=== PATIENT | female | born 1940 | race Hispanic/Latino ===

== ENCOUNTER 2017-08-09 12:38 | Outpatient (CLI) | payer MEDICARE ==
--- NOTE | 2017-08-09 16:33 | XRay Report ---
FINAL REPORT EXAM: XR KNEE 4+V LT HISTORY: LEFT KNEE PAIN TECHNIQUE: Four views left knee. PRIORS: None currently available. FINDINGS: Fegd-op-bayv articulation at the lateral patellofemoral compartment. Otherwise, asymmetrical tricompartment space narrowing. Chondrocalcinosis. Subchondral sclerosis. Marginal osteophytes. Soft tissue dystrophic calcifications or loose bodies. Vascular calcifications. No significant joint effusion. There is no acute fracture. There is no evidence for healing fracture. There is no acute dislocation. There is no cortical destruction to suggest osteomyelitis. There are no suspicious osseous lesions. There are no radiopaque foreign objects. IMPRESSION: Chondrocalcinosis. Moderate to severe arthrosis. 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
== END 2017-08-09 12:39 | disposition home or self-care (01) ==
LOC: SPVIMAG 12:38
PROVIDERS: ATTEND Orthopaedic Surgery Sports Medicine
DX: M17.12 Unilateral primary osteoarthritis, left knee (principal); M11.262 Other chondrocalcinosis, left knee; I10 Essential (primary) hypertension

== ENCOUNTER 2017-11-25 15:42 | Emergency (ER) | payer MEDICARE ==
--- NOTE | 2017-11-25 17:57 | Emergency Department Report ---
HPI - General Chief Complaint: Hypoglycemia Time Seen by Provider: 11/25/17 17:25 - HPI HPI: Room 23 The patient is a 77-year-old female presenting with a chief complaint of altered mental status. The patient's son states for the past 3 days the patient has been altered. The son states the patient has fallen once each day for the past 3 days one time striking her head but never losing consciousness. He states the patient sometimes appears confused and will not follow directions. The patient has also been spilling food/drinks. The patient denies pain but seems to lose her focus easily. When EMS was called patient's blood pressure was found to be 92 (despite being reported as 44 earlier by the patient's son). Patient's glucose was 171 upon arrival to the ED Location: Mental state Duration: [See above] Quality: Altered Severity: Moderate Modifying factors: [see above] Context: [see above] Mode of transportation: [not driving] ED Past Medical Hx - Past Medical History Previous Medical History?: Yes Hx Hypertension: Yes Hx Diabetes: Yes Additional medical history: hyperlipedemia - Surgical History Past Surgical History?: Yes Additional Surgical History: Right hip replacement. back and neck surgery - Family History Family history: no significant - Social History Smoking Status: Never Smoker Substance Use Type: None - Medications Home Medications: Home Medications Medication Instructions Recorded Confirmed Last Taken Type Atenolol [Tenormin] 50 mg PO DAILY 05/21/14 11/25/17 11/25/17 History LORazepam 1 mg PO DAILY PRN 05/21/14 11/25/17 11/25/17 History Omeprazole [PriLOSEC] 20 mg PO DAILY 05/21/14 11/25/17 11/25/17 History Pen Needle, Diabetic [Novofine 1 each SQ DAILY 05/21/14 11/25/17 11/25/17 History Plus] Sertraline [Zoloft] 50 mg PO DAILY 05/21/14 11/25/17 11/25/17 History Simvastatin [Zocor] 20 mg PO QHS 05/21/14 11/25/17 11/25/17 History Insulin Lispro Prot/Lispro 66 units SUB-Q DAILY 11/25/17 11/25/17 11/25/17 History [HumaLOG Mix 75/25 Vial] Levothyroxine [Synthroid] 50 mcg PO QAM 11/25/17 11/25/17 11/25/17 History Lisinopril 20 mg PO BID 11/25/17 11/25/17 11/25/17 History Meclizine [Antivert] 25 mg PO BID PRN 11/25/17 11/25/17 Unknown History NIFEdipine [] 90 mg PO DAILY 11/25/17 11/25/17 11/25/17 History ED Review of Systems ROS: Stated complaint: LOW BLOOD SUGAR Other details as noted in HPI Constitutional: no symptoms reported Eyes: denies: eye pain ENT: denies: ear pain Respiratory: no symptoms reported Cardiovascular: denies: chest pain Endocrine: no symptoms reported Gastrointestinal: abdominal pain Genitourinary: denies: dysuria Musculoskeletal: denies: back pain Neurological: denies: headache Physical Exam - Physical Exam Vital Signs: Vital Signs 11/25/17 17:02 Temperature 98 F Pulse Rate 109 H Respiratory 12 Rate Blood Pressure 184/101 O2 Sat by Pulse 99 Oximetry Physical Exam: GENERAL: The patient is well-developed well-nourished female lying on stretcher not appearing to be in acute distress. [] HEENT: Normocephalic. Atraumatic. Extraocular motions are intact. Patient has moist mucous membranes. NECK: Supple. Trachea midline CHEST/LUNGS: Clear to auscultation. There is no respiratory distress noted. HEART/CARDIOVASCULAR: Regular. There is no tachycardia. There is no gallop rub or murmur. ABDOMEN: Abdomen is soft, with diffuse tenderness to palpation. There is no rebound or guarding. Patient has normal bowel sounds. SKIN: There is no rash. There is no edema. There is no diaphoresis. NEURO: The patient is awake, and answers some questions appropriately. Patient loses her train of thought easily. The patient is cooperative. The patient has no focal neurologic deficits. The patient has normal speech. Cranial nerves II through XII grossly intact, no drift MUSCULOSKELETAL: There is no evidence of acute injury. NIHSS= 0 LOC a. Alert= 0 Not alert but arousable to minor stimuli=1 Not alert requires repeated or strong stimuli to move= 2 Responds only reflex motor or unresponsive=3 b. asks month and age answers both correctly= 0 answers one correctly= 1 answers neither correctly= 2 Best Gaze normal= 0 abnormal in one or both but forced deviation or total paresis absent= 1 forced deviation or total gaze paresis= 2 Visual no visual loss= 0 partial hemianopia= 1 complete hemianopia= 2 bilateral hemianopia= 3 Facial Palsy normal= 0 minor paralysis= 1 partial paralysis= 2 complete paralysis= 3 Motor Arm no drift= 0 drift before 10 secs but doesnt hit bed= 1 some effort against gravity= 2 no effort against gravity= 3 no movement= 4 Motor leg no drift= 0 drift before 5 secs but doesnt hit bed= 1 drifts to bed before 5 secs= 2 no effort against gravity= 3 no movement= 4 Limb ataxia absent=0 present in one limb= 1 present in two limbs= 2 Sensory normal= 0 mild sensory loss= 1 severe (unaware of being touched)= 2 Best language mild/some loss of fluency= 1 severe= 2 mute= 3 Dysarthria normal= 0 slurs some words= 1 severe/unintelligible= 2 Extinction and Inattention no abnormality= 0 visual, tactile, auditory or personal inattention= 1 profound (doesnt recognize own hand or orients to only one side= 2 ED Course Vital Signs 11/25/17 17:02 Temperature 98 F Pulse Rate 109 H Respiratory 12 Rate Blood Pressure 184/101 O2 Sat by Pulse 99 Oximetry ED Medical Decision Making - Lab Data Result diagrams: 11/25/17 17:47 11/25/17 17:47 - Radiology Data Radiology results: report reviewed (CT head, CT cervical spine, CT abdomen and pelvis), image reviewed (CT head, CT cervical spine, CT abdomen and pelvis) [facility] [address] [place] [address] Cat Scan Report Signed Patient: ABRAHAN BARLOW MR#: [id number] : 1940 Acct:[id number] Age/Sex: 77 / F ADM Date: 11/25/17 Loc: ED Attending Dr: Ordering Physician: ANGELA LAMA MD Date of Service: 11/25/17 Procedure(s): CT head/brain wo con Accession Number(s): [id number] cc: ANGELA LAMA MD FINAL REPORT PROCEDURE: CT HEAD/BRAIN WO CON TECHNIQUE: Computerized tomography of the head was performed without contrast material. HISTORY: altered mental status COMPARISON: No prior studies are available for comparison. FINDINGS: Skull and scalp: Normal. Paranasal sinuses: Normal. Ventricles and subarachnoid spaces: Are prominent consistent with cerebral atrophy.. Cerebrum: There is mild degree bilateral periventricular nonspecific white matter hypodensity most likely representing chronic microangiopathy.. Cerebellum and brainstem: No evidence of hemorrhage, acute infarction or mass. Vasculature: Atherosclerotic calcification is noted involving bilateral internal carotid and vertebral arteries.. Comments: None. IMPRESSION: No acute intracranial process. Transcribed By: UBC Dictated By: FANNY HARDIN Electronically Authenticated By: FANNY HARDIN Signed Date/Time: 11/25/172125 DD/ 25 TD/TT: 11/25/172125 [facility] [address] [place] [address] Cat Scan Report Signed Patient: ABRAHAN BARLOW MR#: [id number] : 1940 Acct:[id number] Age/Sex: 77 / F ADM Date: 11/25/17 Loc: ED Attending Dr: Ordering Physician: ANGELA LAMA MD Date of Service: 11/25/17 Procedure(s): CT cervical spine wo con Accession Number(s): [id number] cc: ANGELA LAMA MD FINAL REPORT PROCEDURE: CT CERVICAL SPINE WO CON TECHNIQUE: Computerized tomography of the cervical spine was performed from the skull base to T1 without contrast material. HISTORY: fall, head injury, altered mental status COMPARISON: No prior studies are available for comparison. FINDINGS: Vertebral height is within normal limits. Carotid calcifications are noted bilaterally. Visualized lung apices are clear. Thyroid is unremarkable. An acute fracture is not identified. C1-2: There is narrowing of the atlantoaxial joint space with osteophyte formation. C2-3: Minimal degree right neural foraminal stenosis is noted secondary to minimal degree anterolisthesis and facet arthropathy.. C3-4: Mild degree left neural foraminal stenosis is noted secondary to facet arthropathy.. C4-5: Mild degree broad-based disc osteophyte complex is noted resulting in bilateral lateral recess stenosis right more than left. There is also moderate degree bilateral neural foraminal stenosis secondary to uncovertebral degenerative changes.. C5-6: There is evidence of intraspinal nodular calcification posteriorly to the right measuring about 5 millimeters which in combination with mild degree broad-based disc osteophyte complex is producing mild degree spinal canal stenosis. Moderate degree bilateral neural foraminal stenosis is noted at this level secondary to uncovertebral and facet degenerative changes.. C6-7: No significant abnormality. C7-T1: No significant abnormality. Other: No additional findings. IMPRESSION: No acute fracture Multilevel cervical spondylosis as described above. Postoperative changes are noted in posteriorly at the level of C5. Carotid calcification is noted. Doppler evaluation is recommended.. Transcribed By: [facility] Dictated By: FANNY HARDIN Electronically Authenticated By: FANNY HARDIN Signed Date/Time: 11/25/172147 DD/ 47 TD/TT: 11/25/172147 [facility] [address] [place] [id number] Cat Scan Report Signed Patient: ABRAHAN BARLOW MR#: [id number] : 1940 Acct:[id number] Age/Sex: 77 / F ADM Date: 11/25/17 Loc: ED Attending Dr: Ordering Physician: ANGELA LAMA MD Date of Service: 11/25/17 Procedure(s): CT abdomen pelvis w con Accession Number(s): [id number] cc: ANGELA LAMA MD FINAL REPORT PROCEDURE: CT ABDOMEN PELVIS W CON TECHNIQUE: Computerized axial tomography of the abdomen and pelvis was performed after the IV injection of iodinated nonionic contrast. HISTORY: diffuse abdominal pain COMPARISON: No prior studies are available for comparison. FINDINGS: Ascending aorta measures 4.7 centimeters in diameter. There is mild cardiomegaly. Coronary arterial calcification is identified. A small fat containing uncomplicated umbilical hernia is noted. Small hiatal hernia is noted. A 4 millimeters subpleural nodule is noted in the right lower lobe as seen image 22 of series 2. Evaluation of the abdomen is limited due to streak artifacts from the arms. Evaluation of the pelvis is limited due to streak artifacts from right hip prosthesis. Liver, spleen, pancreas and bilateral adrenal glands are within normal limits. Multiple simple cysts are noted in bilateral kidneys largest measuring 2.6 centimeters located in the upper pole left kidney. There is no obstructive uropathy. Urinary bladder is minimally filled with normal outlines. Abdominal aorta is of normal caliber. There is no free fluid or free air. Gallbladder is unremarkable. Small bowel loops are within normal limits. Multiple colonic diverticular noted without evidence of diverticulitis. Appendix is normal. Multiple wedge compression deformities are noted involving lower thoracic and lumbar vertebrae. Prior vertebral augmentation is noted involving T11 and T12 vertebrae. L2 and L3 vertebrae demonstrate mild degree wedge compression deformities. An irregular sclerotic density measuring about 10 millimeters is noted in the left iliac bone. IMPRESSION: Ascending aortic aneurysm Coronary arterial calcification Mild cardiomegaly Small hiatal hernia No acute intra-abdominal or pelvic pathology Wedge compression deformities of L2 and L3. The age of these fractures is not known. Transcribed By: [place]EE Dictated By: FANNY HARDIN Electronically Authenticated By: FANNY HARDIN Signed Date/Time: 11/25/172135 DD/ 35 TD/TT: 11/25/172135 - Differential Diagnosis subdural hematoma, ICH, hypoglycemia, electrolyte abnormality, ACS Critical care attestation.: If time is entered above; I have spent that time in minutes in the direct care of this critically ill patient, excluding procedure time. ED Disposition Clinical Impression: Altered mental status Disposition: [id number] OP ADMIT IP TO THIS HOSP Is pt being admited?: Yes Does the pt Need Aspirin: Yes Condition: Stable Referrals: PRIMARY CARE,MD [Primary Care Provider] - 3-5 Days Time of Disposition: 22:32 (hospitalist paged (Dr King))
[2017-11-25 18:11] LABS: Basophils % (Auto) 0.3 % (0.0-1.8); Eosinophils # (Auto) 0.1 K/mm3 (0.0-0.4); Eosinophils % (Auto) 0.8 % (0.0-4.3); Hematocrit 37.8 % (30.3-42.9); Hemoglobin 12.9 gm/dl (10.1-14.3); Lymphocytes # (Auto) 1.4 K/mm3 (1.2-5.4); Lymphocytes % (Auto) 18.4 % (13.4-35.0); Mean Corpuscular HGB Conc 34 % (30-34); Mean Corpuscular Hemoglobin 32 pg (28-32); Mean Corpuscular Volume 93 fl (79-97); Monocytes # (Auto) 0.5 K/mm3 (0.0-0.8); Monocytes % (Auto) 6.5 % (0.0-7.3); Platelet Count 240 K/mm3 (140-440); Red Blood Count 4.06 M/mm3 (3.65-5.03); Red Cell Distribution Width 13.4 % (13.2-15.2)
[2017-11-25 18:28] LABS: INR 0.94 (0.87-1.13)
[2017-11-25 18:29] LABS: Partial Thromboplastin Time 28.2 Sec. (24.2-36.6)
[2017-11-25 18:31] LABS: Alanine Aminotransferase 12 units/L (7-56); BUN/Creatinine Ratio 20; Blood Urea Nitrogen 12 mg/dL (7-17); Calcium 9.3 mg/dL (8.4-10.2); Hemolysis Index 8; Lipase 27 units/L (13-60)
[2017-11-25 18:31] LABS: Bilirubin,Urine NEG (Negative); Blood,Urine NEG (Negative); Color,Urine Yellow (Yellow); Mucus,Urine FEW /HPF; Protein,Urine <15 mg/dL mg/dL (Negative); Urobilinogen,Urine < 2.0 mg/dL (<2.0)
[2017-11-25 18:32] LABS: Creatine Kinase MB 2.3 ng/mL (0.0-4.0)
[2017-11-25 18:43] LABS: Free T4 (Free Thyroxine) 1.41 ng/dL (0.76-1.46)
--- NOTE | 2017-11-25 21:31 | Cat Scan Report ---
FINAL REPORT PROCEDURE: CT HEAD/BRAIN WO CON TECHNIQUE: Computerized tomography of the head was performed without contrast material. HISTORY: altered mental status COMPARISON: No prior studies are available for comparison. FINDINGS: Skull and scalp: Normal. Paranasal sinuses: Normal. Ventricles and subarachnoid spaces: Are prominent consistent with cerebral atrophy.. Cerebrum: There is mild degree bilateral periventricular nonspecific white matter hypodensity most likely representing chronic microangiopathy.. Cerebellum and brainstem: No evidence of hemorrhage, acute infarction or mass. Vasculature: Atherosclerotic calcification is noted involving bilateral internal carotid and vertebral arteries.. Comments: None. IMPRESSION: No acute intracranial process.
--- NOTE | 2017-11-25 21:41 | Cat Scan Report ---
FINAL REPORT PROCEDURE: CT ABDOMEN PELVIS W CON TECHNIQUE: Computerized axial tomography of the abdomen and pelvis was performed after the IV injection of iodinated nonionic contrast. HISTORY: diffuse abdominal pain COMPARISON: No prior studies are available for comparison. FINDINGS: Ascending aorta measures 4.7 centimeters in diameter. There is mild cardiomegaly. Coronary arterial calcification is identified. A small fat containing uncomplicated umbilical hernia is noted. Small hiatal hernia is noted. A 4 millimeters subpleural nodule is noted in the right lower lobe as seen image 22 of series 2. Evaluation of the abdomen is limited due to streak artifacts from the arms. Evaluation of the pelvis is limited due to streak artifacts from right hip prosthesis. Liver, spleen, pancreas and bilateral adrenal glands are within normal limits. Multiple simple cysts are noted in bilateral kidneys largest measuring 2.6 centimeters located in the upper pole left kidney. There is no obstructive uropathy. Urinary bladder is minimally filled with normal outlines. Abdominal aorta is of normal caliber. There is no free fluid or free air. Gallbladder is unremarkable. Small bowel loops are within normal limits. Multiple colonic diverticular noted without evidence of diverticulitis. Appendix is normal. Multiple wedge compression deformities are noted involving lower thoracic and lumbar vertebrae. Prior vertebral augmentation is noted involving T11 and T12 vertebrae. L2 and L3 vertebrae demonstrate mild degree wedge compression deformities. An irregular sclerotic density measuring about 10 millimeters is noted in the left iliac bone. IMPRESSION: Ascending aortic aneurysm Coronary arterial calcification Mild cardiomegaly Small hiatal hernia No acute intra-abdominal or pelvic pathology Wedge compression deformities of L2 and L3. The age of these fractures is not known.
--- NOTE | 2017-11-25 21:53 | Cat Scan Report ---
FINAL REPORT PROCEDURE: CT CERVICAL SPINE WO CON TECHNIQUE: Computerized tomography of the cervical spine was performed from the skull base to T1 without contrast material. HISTORY: fall, head injury, altered mental status COMPARISON: No prior studies are available for comparison. FINDINGS: Vertebral height is within normal limits. Carotid calcifications are noted bilaterally. Visualized lung apices are clear. Thyroid is unremarkable. An acute fracture is not identified. C1-2: There is narrowing of the atlantoaxial joint space with osteophyte formation. C2-3: Minimal degree right neural foraminal stenosis is noted secondary to minimal degree anterolisthesis and facet arthropathy.. C3-4: Mild degree left neural foraminal stenosis is noted secondary to facet arthropathy.. C4-5: Mild degree broad-based disc osteophyte complex is noted resulting in bilateral lateral recess stenosis right more than left. There is also moderate degree bilateral neural foraminal stenosis secondary to uncovertebral degenerative changes.. C5-6: There is evidence of intraspinal nodular calcification posteriorly to the right measuring about 5 millimeters which in combination with mild degree broad-based disc osteophyte complex is producing mild degree spinal canal stenosis. Moderate degree bilateral neural foraminal stenosis is noted at this level secondary to uncovertebral and facet degenerative changes.. C6-7: No significant abnormality. C7-T1: No significant abnormality. Other: No additional findings. IMPRESSION: No acute fracture Multilevel cervical spondylosis as described above. Postoperative changes are noted in posteriorly at the level of C5. Carotid calcification is noted. Doppler evaluation is recommended..
[2017-11-25] MEDS ORDERED: ASPIRIN PO ONE (22:33)
[2017-11-26 00:42] VITALS: BP 193/96
== END 2017-11-26 00:42 | disposition left against medical advice (07) ==
LOC: ED 15:42
DX: R41.82 Altered mental status, unspecified (principal); E11.65 Type 2 diabetes mellitus with hyperglycemia; R10.84 Generalized abdominal pain; I10 Essential (primary) hypertension; E78.5 Hyperlipidemia, unspecified
CPT/HCPCS: 36415; 70450; 72125; 74177; 80053; 81001; 82550; 82553; 82962; 83690; 84439; 84443; 84484; 85025; 85610; 85730; 99285; Q9967

== ENCOUNTER 2018-01-26 13:33 | Emergency (ER) | payer MEDICARE ==
--- NOTE | 2018-01-26 14:11 | Emergency Department Report ---
<JUNI MARKS III - Last Filed: 01/26/18 17:22> ED Fall HPI - General Chief Complaint: Chest Pain Stated Complaint: CHEST PAIN Time Seen by Provider: 01/26/18 14:10 - Related Data Home Medications Medication Instructions Recorded Confirmed Last Taken Atenolol [Tenormin] 50 mg PO DAILY 05/21/14 11/25/17 11/25/17 LORazepam 1 mg PO DAILY PRN 05/21/14 11/25/17 11/25/17 Omeprazole [PriLOSEC] 20 mg PO DAILY 05/21/14 11/25/17 11/25/17 Pen Needle, Diabetic [Novofine 1 each SQ DAILY 05/21/14 11/25/17 11/25/17 Plus] Sertraline [Zoloft] 50 mg PO DAILY 05/21/14 11/25/17 11/25/17 Simvastatin [Zocor] 20 mg PO QHS 05/21/14 11/25/17 11/25/17 Insulin Lispro Prot/Lispro 66 units SUB-Q DAILY 11/25/17 11/25/17 11/25/17 [HumaLOG Mix 75/25 Vial] Levothyroxine [Synthroid] 50 mcg PO QAM 11/25/17 11/25/17 11/25/17 Lisinopril 20 mg PO BID 11/25/17 11/25/17 11/25/17 Meclizine [Antivert] 25 mg PO BID PRN 11/25/17 11/25/17 Unknown NIFEdipine [] 90 mg PO DAILY 11/25/17 11/25/17 11/25/17 Previous Rx's Medication Instructions Recorded Last Taken Type traMADol [Ultram] 50 mg PO Q4HR PRN #15 tablet 01/26/18 Unknown Rx Allergies Allergy/AdvReac Type Severity Reaction Status Date / Time No Known Allergies Allergy Verified 05/21/14 10:49 ED Review of Systems ROS: Stated complaint: CHEST PAIN Other details as noted in HPI ED Past Medical Hx - Medications Home Medications: Home Medications Medication Instructions Recorded Confirmed Last Taken Type Atenolol [Tenormin] 50 mg PO DAILY 05/21/14 11/25/17 11/25/17 History LORazepam 1 mg PO DAILY PRN 05/21/14 11/25/17 11/25/17 History Omeprazole [PriLOSEC] 20 mg PO DAILY 05/21/14 11/25/17 11/25/17 History Pen Needle, Diabetic [Novofine 1 each SQ DAILY 05/21/14 11/25/17 11/25/17 History Plus] Sertraline [Zoloft] 50 mg PO DAILY 05/21/14 11/25/17 11/25/17 History Simvastatin [Zocor] 20 mg PO QHS 05/21/14 11/25/17 11/25/17 History Insulin Lispro Prot/Lispro 66 units SUB-Q DAILY 11/25/17 11/25/17 11/25/17 History [HumaLOG Mix 75/25 Vial] Levothyroxine [Synthroid] 50 mcg PO QAM 11/25/17 11/25/17 11/25/17 History Lisinopril 20 mg PO BID 11/25/17 11/25/17 11/25/17 History Meclizine [Antivert] 25 mg PO BID PRN 11/25/17 11/25/17 Unknown History NIFEdipine [] 90 mg PO DAILY 11/25/17 11/25/17 11/25/17 History traMADol [Ultram] 50 mg PO Q4HR PRN #15 tablet 01/26/18 Unknown Rx ED Course Vital Signs 01/26/18 01/26/18 01/26/18 14:06 14:18 18:06 Temperature 98.2 F 98.2 F Pulse Rate 93 H 93 H 95 H Respiratory 22 22 20 Rate Blood Pressure 125/80 119/79 [Left] O2 Sat by Pulse 96 96 96 Oximetry - Reevaluation(s) Reevaluation #2: Patient was signed out to me from Dr. Wallace to check CT results. Patient has CT of her chest. CTA was negative for acute finding. On CTA, no dissection, no PE, no bony involvement. Discussed all results with patient. Patient is stable for discharge. Patient will be sent home with prescription medications and discharge instructions. Patient given return to ER and discharge instructions. Patient voiced understanding. Family is at bedside during discussion. 01/26/18 17:18 ED Medical Decision Making - Lab Data Result diagrams: 01/26/18 14:48 01/26/18 14:48 - Radiology Data Radiology results: report reviewed FINAL REPORT EXAM: CT CHEST W CON HISTORY: Chest trauma TECHNIQUE: CT of the chest was performed after the administration of intravenous contrast. Reconstructions were included in the coronal and sagittal planes. PRIORS: None. FINDINGS: Great vessels: Atherosclerotic calculi are seen in the thoracic aorta. Ectasia of the ascending thoracic aorta again seen measuring 4.8 centimeters AP x 4.5 centimeters transverse. The descending thoracic aorta is normal in caliber. The great vessels are patent. Lungs and airways: No pleural effusion. No pulmonary nodules or masses. No airspace consolidation. The airways are patent. No bronchiectasis. Bilateral dependent atelectasis is seen. No pneumothorax. Mediastinum, heart, pericardium: No mediastinal lymphadenopathy. No cardiac chamber enlargement. No pericardial effusion. Thoracic inlet, chest wall, axilla: No chest wall masses. There is a 1 centimeter hypoattenuating right thyroid nodule. No axillary lymphadenopathy. Upper abdomen: There is a simple left superior pole renal cyst. Bones: Old T11 and T12 compression fractures noted with vertebroplasties in place. Multilevel degenerative changes of the thoracic spine are seen. No acute osseous abnormality. Irregular appearance of the lower manubrium and upper sternum, likely related to motion artifact rather than fractures. IMPRESSION: 1. No acute intrathoracic process. 2. Ectasia of the ascending thoracic aorta again seen measuring up to 4.8 centimeters. 3. Right thyroid nodule should be further assessed on thyroid ultrasound. Transcribed By: MG Dictated By: MARIA G CHAVEZ MD Electronically Authenticated By: MARIA G CHAVEZ MD Signed Date/Time: 01/26/18 0814 Critical care attestation.: If time is entered above; I have spent that time in minutes in the direct care of this critically ill patient, excluding procedure time. ED Disposition Clinical Impression: Chest wall pain Contusion, chest wall Qualifiers: Encounter type: initial encounter Laterality: unspecified laterality Qualified Code(s): S20.219A - Contusion of unspecified front wall of thorax, initial encounter Fall Qualifiers: Encounter type: initial encounter Qualified Code(s): W19.XXXA - Unspecified fall, initial encounter Disposition: DC-01 TO HOME OR SELFCARE Is pt being admited?: No Does the pt Need Aspirin: No Condition: Stable Instructions: Chest Pain (ED), Costochondritis (ED) Additional Instructions: Patient to follow up with primary care in 3-5 days. Patient to return to the ER if condition worsens. Patient to take meds as directed. Patient to take Tylenol ibuprofen when necessary for pain patient to take prescription as directed. Patient to rest. Prescriptions: traMADol [Ultram] 50 mg PO Q4HR PRN #15 tablet PRN Reason: Pain Referrals: PRIMARY CARE,MD [Primary Care Provider] - 3-5 Days Time of Disposition: 17:18 <ANDREA WALLACE - Last Filed: 01/27/18 10:49> ED Fall HPI - General Source: patient, family, EMS Mode of arrival: Stretcher Limitations: No Limitations - History of Present Illness Initial Comments: Patient was feeding her cat when she lost her balance and fell hitting her chest on the walker. She is having chest pain afterwards. Complaint: fall -: This morning Fall From: standing When Fall Occurred: just prior to arrival Fall Witnessed: yes, by family Place Fall Occurred: home Loss of Consciousness: none Prolonged Down Time?: no Symptoms Prior to Fall: none Location: chest Severity: mild Severity scale (0 -10): 2 Quality: sharp Context: other (Lost her balance) Associated Symptoms: chest paint ED Review of Systems Comment: All other systems reviewed and negative Constitutional: denies: chills, fever Eyes: denies: eye pain, eye discharge ENT: denies: ear pain, throat pain Respiratory: denies: cough, shortness of breath Cardiovascular: chest pain. denies: palpitations, dyspnea on exertion Endocrine: no symptoms reported Gastrointestinal: denies: abdominal pain, nausea, vomiting, diarrhea Genitourinary: denies: urgency, dysuria, frequency Musculoskeletal: denies: back pain, joint swelling Skin: denies: rash, lesions Neurological: denies: headache, weakness, numbness Psychiatric: denies: anxiety, depression Hematological/Lymphatic: denies: easy bleeding, easy bruising ED Past Medical Hx - Past Medical History Hx Hypertension: Yes Hx Diabetes: Yes Additional medical history: hyperlipedemia - Surgical History Additional Surgical History: Right hip replacement. back and neck surgery - Social History Smoking Status: Never Smoker Substance Use Type: None ED Physical Exam - General Limitations: No Limitations General appearance: alert, in no apparent distress - Head Head exam: Present: atraumatic, normocephalic, normal inspection - Eye Eye exam: Present: normal appearance, PERRL, EOMI Pupils: Present: normal accommodation - ENT ENT exam: Present: normal exam, normal orophraynx, mucous membranes moist - Neck Neck exam: Present: normal inspection, full ROM. Absent: tenderness - Respiratory Respiratory exam: Present: normal lung sounds bilaterally. Absent: respiratory distress, wheezes, rales, rhonchi, stridor - Cardiovascular Cardiovascular Exam: Present: regular rate, normal rhythm, normal heart sounds, other (Sternal chest wall tenderness to palpation.) - GI/Abdominal GI/Abdominal exam: Present: soft, normal bowel sounds. Absent: distended, tenderness, guarding, rebound, rigid - Extremities Exam Extremities exam: Present: normal inspection, full ROM, normal capillary refill. Absent: tenderness - Back Exam Back exam: Present: normal inspection, full ROM. Absent: tenderness - Neurological Exam Neurological exam: Present: alert, oriented X3, CN II-XII intact - Psychiatric Psychiatric exam: Present: normal affect, normal mood - Skin Skin exam: Present: warm, dry, intact, normal color. Absent: rash ED Course Vital Signs 01/26/18 01/26/18 01/26/18 14:06 14:18 18:06 Temperature 98.2 F 98.2 F Pulse Rate 93 H 93 H 95 H Respiratory 22 22 20 Rate Blood Pressure 125/80 119/79 [Left] O2 Sat by Pulse 96 96 96 Oximetry - Reevaluation(s) Reevaluation #1: 01/26/18 16:40 Patient was signed out to Dr. Marks at shift change pending CT chest with contrast and urinalysis results. Dr. Marks to disposition patient hospital because of his altered. ED Medical Decision Making - Lab Data Result diagrams: 01/26/18 14:48 01/26/18 14:48 ED Disposition Is pt being admited?: No Does the pt Need Aspirin: No
--- NOTE | 2018-01-26 14:45 | XRay Report ---
AP CHEST: HISTORY: chest pain AP view of the chest demonstrates a normal mediastinal and cardiac contour with clear lungs and normal bony and soft tissue structures. IMPRESSION: No acute cardiopulmonary process identified.
[2018-01-26 15:10] LABS: Basophils % (Auto) 0.3 % (0.0-1.8); Eosinophils # (Auto) 0.1 K/mm3 (0.0-0.4); Eosinophils % (Auto) 0.8 % (0.0-4.3); Hematocrit 40.5 % (30.3-42.9); Hemoglobin 13.7 gm/dl (10.1-14.3); Lymphocytes # (Auto) 0.9 K/mm3 (1.2-5.4); Lymphocytes % (Auto) 9.5 % (13.4-35.0); Mean Corpuscular HGB Conc 34 % (30-34); Mean Corpuscular Hemoglobin 32 pg (28-32); Mean Corpuscular Volume 94 fl (79-97); Monocytes # (Auto) 0.4 K/mm3 (0.0-0.8); Monocytes % (Auto) 4.9 % (0.0-7.3); Platelet Count 267 K/mm3 (140-440); Red Blood Count 4.33 M/mm3 (3.65-5.03); Red Cell Distribution Width 14.2 % (13.2-15.2)
[2018-01-26 15:24] LABS: INR 0.94 (0.87-1.13)
[2018-01-26 15:25] LABS: Partial Thromboplastin Time 32.7 Sec. (24.2-36.6)
[2018-01-26 15:26] LABS: Alanine Aminotransferase 11 units/L (7-56); Albumin 4.7 g/dL (3.9-5); BUN/Creatinine Ratio 17; Blood Urea Nitrogen 10 mg/dL (7-17); Calcium 10.1 mg/dL (8.4-10.2); Hemolysis Index 8; Lipase 31 units/L (13-60)
[2018-01-26] MEDS ORDERED: NORCO 5/325 PO ONE (15:50)
[2018-01-26 16:53] LABS: Bilirubin,Urine NEG (Negative); Blood,Urine NEG (Negative); Color,Urine Yellow (Yellow); Protein,Urine <15 mg/dL mg/dL (Negative); Urobilinogen,Urine < 2.0 mg/dL (<2.0); WBC,Urine < 1.0 /HPF (0.0-6.0)
--- NOTE | 2018-01-26 16:54 | Cat Scan Report ---
FINAL REPORT EXAM: CT CHEST W CON HISTORY: Chest trauma TECHNIQUE: CT of the chest was performed after the administration of intravenous contrast. Reconstructions were included in the coronal and sagittal planes. PRIORS: None. FINDINGS: Great vessels: Atherosclerotic calculi are seen in the thoracic aorta. Ectasia of the ascending thoracic aorta again seen measuring 4.8 centimeters AP x 4.5 centimeters transverse. The descending thoracic aorta is normal in caliber. The great vessels are patent. Lungs and airways: No pleural effusion. No pulmonary nodules or masses. No airspace consolidation. The airways are patent. No bronchiectasis. Bilateral dependent atelectasis is seen. No pneumothorax. Mediastinum, heart, pericardium: No mediastinal lymphadenopathy. No cardiac chamber enlargement. No pericardial effusion. Thoracic inlet, chest wall, axilla: No chest wall masses. There is a 1 centimeter hypoattenuating right thyroid nodule. No axillary lymphadenopathy. Upper abdomen: There is a simple left superior pole renal cyst. Bones: Old T11 and T12 compression fractures noted with vertebroplasties in place. Multilevel degenerative changes of the thoracic spine are seen. No acute osseous abnormality. Irregular appearance of the lower manubrium and upper sternum, likely related to motion artifact rather than fractures. IMPRESSION: 1. No acute intrathoracic process. 2. Ectasia of the ascending thoracic aorta again seen measuring up to 4.8 centimeters. 3. Right thyroid nodule should be further assessed on thyroid ultrasound.
[2018-01-26 18:07] VITALS: BP 119/79
== END 2018-01-26 18:07 | disposition home or self-care (01) ==
LOC: ED 13:33
DX: S20.219A Contusion of unspecified front wall of thorax, initial encounter (principal); I10 Essential (primary) hypertension; E11.9 Type 2 diabetes mellitus without complications; Z79.899 Other long term (current) drug therapy; Z96.641 Presence of right artificial hip joint; W20.8XXA Other cause of strike by thrown, projected or falling object, initial encounter; Y93.89 Activity, other specified; Y99.8 Other external cause status; Y92.019 Unspecified place in single-family (private) house as the place of occurrence of the external cause
CPT/HCPCS: 36415; 71045; 71260; 80053; 81001; 82962; 83690; 84484; 85025; 85610; 85730; 93005; 93010; 99285; Q9967

== ENCOUNTER 2019-03-27 19:56 | Emergency (ER) | payer MEDICARE ==
--- NOTE | 2019-03-27 22:33 | XRay Report ---
RIGHT HIP 2 VIEW(S) INDICATION / CLINICAL INFORMATION: fall COMPARISON: None available. FINDINGS: 2 views of the right hip. BONES / JOINT(S): Right hip arthroplasty and fixation hardware related to an old, healed periprosthet ic fracture are noted. There is no acute fracture or osseous malalignment visualized. SOFT TISSUES: No significant abnormality. Signer Name: Nitesh Temple MD Signed: 03/27/2019 10:28 PM Workstation Name: [id number]
--- NOTE | 2019-03-27 22:46 | Cat Scan Report ---
CT head/brain wo con INDICATION: fall. TECHNIQUE: All CT scans at this location are performed using the following dose modulation technique: Automated exposure control. CONTRAST: None. COMPARISON: 09/08/2018. FINDINGS: The ventricular system is appropriate in size and configuration without midline shift. Nega tive for mass, stroke or hemorrhage. Mild low density within the periventricular white matter is typi ivon of chronic small vessel ischemic change. IMPRESSION: Mild chronic small vessel ischemic change. Signer Name: Edwin Maria MD Signed: 03/27/2019 10:41 PM Workstation Name: [id number]
--- NOTE | 2019-03-27 22:46 | XRay Report ---
LUMBAR SPINE 3 VIEWS INDICATION / CLINICAL INFORMATION: fall. COMPARISON: CT scan from 02/22/2018 FINDINGS: VERTEBRAE: Chronic compression fractures of L2 and L3, unchanged compared to 02/22/2018. No change in alignment. Augmentation cement in the T11 and T12 vertebral bodies was present on the previous CT ex amination. Diffuse, subjective osteopenia. No acute fracture or progressive height loss at existing f ractures. DISC SPACES / FACET JOINTS:Multilevel degenerative changes are present. PARASPINAL SOFT TISSUES:Diffuse atherosclerotic calcification of the abdominal aorta. ADDITIONAL FINDINGS: Partially imaged hip arthroplasty hardware is noted. IMPRESSION: 1. Multiple lower thoracic and lumbar compression fractures are present, but there is no evidence of progressive height loss relative to a CT scan performed on 02/22/2018. No new abnormality is identifi ed. 2. Subjective osteopenia. 3. With persistent concern for acute fracture, MRI of the spine without contrast may be required for further evaluation. Signer Name: Nitesh Temple MD Signed: 03/27/2019 10:42 PM Workstation Name: [id number]
[2019-03-27] MEDS ORDERED: LISINOPRIL 20 MG TAB PO ONE (22:52)
--- NOTE | 2019-03-27 23:39 | Emergency Department Report ---
ED Fall HPI - General Chief Complaint: Fall Stated Complaint: FALL/HYPERTENSION Time Seen by Provider: 03/27/19 20:36 Source: EMS Mode of arrival: Stretcher - History of Present Illness Initial Comments: 78-year-old female, history of hypertension and osteoporosis, presents to ED following fall at home. Patient states she was bending down to pick something up and then fell over. Patient reports mild pain to her lower back and right hip. She reports history of hip replacement on that side. She denies LOC or headache. Son states he called EMS because he was unsure of any injury she may have sustained during the fall and did not want to move her. Complaint: fall -: This evening Fall From: standing Place Fall Occurred: home Loss of Consciousness: none Symptoms Prior to Fall: none Location: back, pelvis Severity: mild Quality: aching Associated Symptoms: denies: headache, neck pain, numbness, weakness, chest paint, shortness of breath, abdominal pain - Related Data Home Medications Medication Instructions Recorded Confirmed Last Taken LORazepam 1 mg PO DAILY PRN 05/21/14 09/08/18 11/25/17 Omeprazole [PriLOSEC] 20 mg PO DAILY 05/21/14 09/08/18 09/07/18 09:00 Sertraline [Zoloft] 50 mg PO DAILY 05/21/14 09/08/18 09/07/18 09:00 Simvastatin [Zocor TAB] 20 mg PO QHS 05/21/14 09/08/18 09/07/18 21:00 Levothyroxine [Synthroid] 50 mcg PO QAM 11/25/17 09/08/18 09/07/18 06:00 Lisinopril 20 mg PO BID 11/25/17 09/08/18 09/07/18 21:00 Meclizine [Antivert] 25 mg PO BID PRN 11/25/17 09/08/18 Unknown NIFEdipine [Nifedipine ER] 90 mg PO DAILY 11/25/17 09/08/18 09/07/18 09:00 Ascorbic Acid [Vitamin C] 1,000 mg PO DAILY 09/08/18 09/08/18 09/07/18 09:00 Calcium Carbonate [Oscal 1250MG 500 mg PO DAILY 09/08/18 09/08/18 09/07/18 09:00 TAB] Gabapentin 300 mg PO Q8HR 09/08/18 09/08/18 09/07/18 21:00 Multivitamin/Iron/Folic Acid 1 each PO DAILY 09/08/18 09/08/18 09/07/18 09:00 [Centrum Adults Tablet] Previous Rx's Medication Instructions Recorded Last Taken Type Atenolol [Tenormin] 50 mg PO DAILY tablet 09/09/18 Unknown Rx Insulin Lispro [HumaLOG VIAL] 0 units SQ AC #1 vial 09/09/18 Unknown Rx levoFLOXacin [Levaquin TAB] 500 mg PO QDAY #5 tablet 09/09/18 Unknown Rx Insulin Glargine [Lantus VIAL] 20 units SUB-Q QHS 30 Days units 09/10/18 Unknown Rx Allergies Allergy/AdvReac Type Severity Reaction Status Date / Time No Known Allergies Allergy Verified 05/21/14 10:49 ED Review of Systems ROS: Stated complaint: FALL/HYPERTENSION Other details as noted in HPI Comment: All other systems reviewed and negative Respiratory: denies: shortness of breath Cardiovascular: denies: chest pain Gastrointestinal: denies: abdominal pain, nausea, vomiting Musculoskeletal: as per HPI Neurological: denies: headache ED Past Medical Hx - Past Medical History Previous Medical History?: Yes Hx Hypertension: Yes Hx Diabetes: Yes Additional medical history: hyperlipedemia - Surgical History Past Surgical History?: Yes Additional Surgical History: Right hip replacement. back and neck surgery - Social History Smoking Status: Never Smoker Substance Use Type: None - Medications Home Medications: Home Medications Medication Instructions Recorded Confirmed Last Taken Type LORazepam 1 mg PO DAILY PRN 05/21/14 09/08/18 11/25/17 History Omeprazole [PriLOSEC] 20 mg PO DAILY 05/21/14 09/08/18 09/07/18 09:00 History Sertraline [Zoloft] 50 mg PO DAILY 05/21/14 09/08/18 09/07/18 09:00 History Simvastatin [Zocor TAB] 20 mg PO QHS 05/21/14 09/08/18 09/07/18 21:00 History Levothyroxine [Synthroid] 50 mcg PO QAM 11/25/17 09/08/18 09/07/18 06:00 History Lisinopril 20 mg PO BID 11/25/17 09/08/18 09/07/18 21:00 History Meclizine [Antivert] 25 mg PO BID PRN 11/25/17 09/08/18 Unknown History NIFEdipine [Nifedipine ER] 90 mg PO DAILY 11/25/17 09/08/18 09/07/18 09:00 History Ascorbic Acid [Vitamin C] 1,000 mg PO DAILY 09/08/18 09/08/18 09/07/18 09:00 His tory Calcium Carbonate [Oscal 1250MG 500 mg PO DAILY 09/08/18 09/08/18 09/07/18 09:00 History TAB] Gabapentin 300 mg PO Q8HR 09/08/18 09/08/18 09/07/18 21:00 History Multivitamin/Iron/Folic Acid 1 each PO DAILY 09/08/18 09/08/18 09/07/18 09:00 History [Centrum Adults Tablet] Atenolol [Tenormin] 50 mg PO DAILY tablet 09/09/18 Unknown Rx Insulin Lispro [HumaLOG VIAL] 0 units SQ AC #1 vial 09/09/18 Unknown Rx levoFLOXacin [Levaquin TAB] 500 mg PO QDAY #5 tablet 09/09/18 Unknown Rx Insulin Glargine [Lantus VIAL] 20 units SUB-Q QHS 30 Days units 09/10/18 Unknown Rx ED Physical Exam - General Limitations: Physical Limitation General appearance: alert, in no apparent distress - Head Head exam: Present: atraumatic, normocephalic - Eye Eye exam: Present: normal appearance, EOMI - ENT ENT exam: Present: mucous membranes moist - Neck Neck exam: Present: normal inspection, full ROM. Absent: tenderness - Respiratory Respiratory exam: Present: normal lung sounds bilaterally. Absent: respiratory distress - Cardiovascular Cardiovascular Exam: Present: regular rate, normal rhythm - GI/Abdominal GI/Abdominal exam: Present: soft. Absent: distended, tenderness - Extremities Exam Extremities exam: Present: normal inspection, other (very mild tenderness to right hip) - Back Exam Back exam: Present: vertebral tenderness (very mild tenderness to lower lumbar region) - Neurological Exam Neurological exam: Present: alert, oriented X3, CN II-XII intact. Absent: motor sensory deficit - Psychiatric Psychiatric exam: Present: normal affect, normal mood - Skin Skin exam: Present: warm, dry, intact, normal color ED Course Vital Signs 1103/27/19 03/27/19 20:09 22:16 23:08 Temperature 98.3 F 98.2 F Pulse Rate 98 H 96 H 93 H Respiratory 16 16 Rate Blood Pressure 196/117 186/99 Blood Pressure 196/117 186/96 [Right] O2 Sat by Pulse 99 99 Oximetry 03/28/19 00:55 Temperature 98.1 F Pulse Rate 90 Respiratory 12 Rate Blood Pressure Blood Pressure 174/100 [Right] O2 Sat by Pulse 94 Oximetry ED Medical Decision Making - Radiology Data Radiology results: report reviewed, image reviewed - Medical Decision Making 78-year-old female status post fall at home. CT head, lumbar spine films, and right hip films are unremarkable. Patient missed her nighttime dose of blood pressure medications and was given here in the ED. Patient is feeling better at this time, has no complaints. Will discharge home. Son is at bedside. Return precautions given. Outpatient follow-up advised. - Differential Diagnosis intracranial injury, fracture, contusion Critical care attestation.: If time is entered above; I have spent that time in minutes in the direct care of this critically ill patient, excluding procedure time. ED Disposition Clinical Impression: Fall, Lumbar contusion, Contusion of right hip, Hypertension Disposition: -01 TO HOME OR SELFCARE Is pt being admited?: No Condition: Stable Instructions: Contusion in Adults (ED), Hypertension (ED) Referrals: PRIMARY CARE [Primary Care Provider] - 3-5 Days Time of Disposition: 23:39
[2019-03-28 01:27] VITALS: BP 174/100
== END 2019-03-28 00:55 | disposition home or self-care (01) ==
LOC: ED 19:56
DX: S30.0XXA Contusion of lower back and pelvis, initial encounter (principal); S70.01XA Contusion of right hip, initial encounter; I10 Essential (primary) hypertension; E11.9 Type 2 diabetes mellitus without complications; E78.5 Hyperlipidemia, unspecified; Z79.899 Other long term (current) drug therapy; Z98.890 Other specified postprocedural states; Z79.4 Long term (current) use of insulin; W19.XXXA Unspecified fall, initial encounter; Y93.89 Activity, other specified; Y92.89 Other specified places as the place of occurrence of the external cause; Y99.8 Other external cause status
CPT/HCPCS: 70450; 72100; 82962

== ENCOUNTER 2019-04-18 11:36 | Outpatient (CLI) | payer MEDICARE ==
--- NOTE | 2019-04-18 13:52 | Cat Scan Report ---
CT HEAD WITHOUT CONTRAST HISTORY: HEADACHE/HEAD TRAUMA. TECHNIQUE: Axial imaging performed from the skull apex through the skull base without the use of con trast. All CT scans at this location are performed using CT dose reduction for ALARA by means of aut omated exposure control. COMPARISON: 03/27/2019 FINDINGS: Parenchyma: No acute intracranial hemorrhage or parenchymal abnormality.. Mild hypoattenuation thro ughout the white matter is noted and consistent with chronic microvascular ischemic disease. 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 Ventricles: There is mild diffuse brain atrophy with commensurate ventricular enlargement which is l ikely age appropriate. Soft tissues: Soft tissues including the orbits appear normal. Bones: No acute osseous abnormality. Sinuses: Sinuses and mastoid air cells are clear. IMPRESSION: No acute abnormality. No change since 03/27/2019. Signer Name: Lowell Garcia Jr, MD Signed: 04/18/2019 1:48 PM Workstation Name: [id number]
== END 2019-04-18 11:37 | disposition home or self-care (01) ==
LOC: CT 11:36
PROVIDERS: ATTEND Internal Medicine
DX: R51 Headache (principal); S09.90XA Unspecified injury of head, initial encounter; X58.XXXA Exposure to other specified factors, initial encounter; Y93.89 Activity, other specified; Y92.89 Other specified places as the place of occurrence of the external cause; Y99.8 Other external cause status
CPT/HCPCS: 70450